=== PATIENT | female | born 1960 | race American Indian/Alaskan Native ===

== ENCOUNTER 2017-07-22 09:12 | Emergency (ER) | payer OTHER, MEDICARE ==
[2017-07-22] MEDS ORDERED: NORCO 5/325 PO ONE (12:19)
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
--- NOTE | 2017-07-22 13:30 | XRay Report ---
ROUTINE CHEST, TWO VIEWS: HISTORY: chest pain. The trachea, heart, mediastinal contour, lung lawrence and bony thorax are unremarkable. IMPRESSION: Unremarkable chest x-ray.
--- NOTE | 2017-07-22 13:31 | XRay Report ---
LEFT WRIST, 4 views: HISTORY: Left wrist pain. Routine views demonstrate the carpal bones to be well mineralized with well preserved bony mineralization and interosseous joint spaces. The carpal and adjacent articular bones have normal contours. The surrounding soft tissues are unremarkable. IMPRESSION: Normal study.
--- NOTE | 2017-07-22 13:32 | XRay Report ---
RIGHT KNEE, 3 views: History: Right knee pain. The bony architecture is intact without evidence of fracture or dislocation. Mild to moderate joint space narrowing is noted in the medial compartment and patellofemoral space. No significant soft tissue abnormality is seen. IMPRESSION: Osteoarthritis. No acute process.
[2017-07-22 14:07] VITALS: BP 117/71
== END 2017-07-22 14:10 | disposition home or self-care (01) ==
LOC: ED 09:12
DX: S63.602A Unspecified sprain of left thumb, initial encounter (principal); I10 Essential (primary) hypertension; F17.200 Nicotine dependence, unspecified, uncomplicated; E78.00 Pure hypercholesterolemia, unspecified; E03.9 Hypothyroidism, unspecified; Z79.82 Long term (current) use of aspirin; Z88.0 Allergy status to penicillin; V89.2XXA Person injured in unspecified motor-vehicle accident, traffic, initial encounter; Y93.89 Activity, other specified; Y92.89 Other specified places as the place of occurrence of the external cause; Y99.8 Other external cause status
CPT/HCPCS: 71046; 99283

== ENCOUNTER 2019-03-30 22:31 | Emergency (ER) | payer MEDICARE ==
--- NOTE | 2019-03-30 22:42 | Emergency Department Report ---
Blank Doc - Documentation Documentation: 58-year-old female that presents with right upper abdominal pain with hx of ga llstones. Stated has n/v with dark colored stool. This initial assessment/diagnostic orders/clinical plan/treatment(s) is/are subject to change based on patient's health status, clinical progression and re- assessment by fellow clinical providers in the ED. Further treatment and workup at subsequent clinical providers discretion. Patient/guardians urged not to elope from the ED as their condition may be serious if not clinically assessed and managed. Initial orders include: 1- Patient sent to MAIN for further evaluation and treatment 2- labs 3- UA
[2019-03-30 23:28] LABS: Bilirubin,Urine NEG (Negative); Blood,Urine SM (Negative); Color,Urine Yellow (Yellow); Protein,Urine <15 mg/dL mg/dL (Negative); Urobilinogen,Urine < 2.0 mg/dL (<2.0)
[2019-03-30 23:36] LABS: Basophils % (Auto) 0.4 % (0.0-1.8); Eosinophils # (Auto) 0.2 K/mm3 (0.0-0.4); Eosinophils % (Auto) 1.8 % (0.0-4.3); Hematocrit 41.2 % (30.3-42.9); Hemoglobin 13.3 gm/dl (10.1-14.3); Lymphocytes # (Auto) 3.7 K/mm3 (1.2-5.4); Lymphocytes % (Auto) 38.8 % (13.4-35.0); Mean Corpuscular HGB Conc 32 % (30-34); Mean Corpuscular Volume 90 fl (79-97); Monocytes % (Auto) 10.6 % (0.0-7.3); Platelet Count 305 K/mm3 (140-440); Red Blood Count 4.58 M/mm3 (3.65-5.03); Red Cell Distribution Width 15.4 % (13.2-15.2)
[2019-03-30 23:52] LABS: Alanine Aminotransferase 12 units/L (7-56); Albumin 3.9 g/dL (3.9-5); BUN/Creatinine Ratio 9; Blood Urea Nitrogen 7 mg/dL (7-17); Calcium 9.6 mg/dL (8.4-10.2); Hemolysis Index 1
--- NOTE | 2019-03-31 00:29 | Emergency Department Report ---
ED Abdominal Pain HPI - General Chief Complaint: Abdominal Pain Stated Complaint: GALLBLADDER Time Seen by Provider: 03/30/19 22:40 Source: patient Mode of arrival: Ambulatory Limitations: Physical Limitation - History of Present Illness Severity scale (0 -10): 4 - Related Data Home Medications Medication Instructions Recorded Confirmed Last Taken Levothyroxine [Synthroid] 100 mcg PO QAM 01/03/14 05/09/16 Unknown traMADol [Ultram 50 MG tab] 50 mg PO Q4HR PRN 01/03/14 05/09/16 Unknown DOXYCYCLINE Hyclate [Vibramycin] 100 mg PO UNK 05/09/16 05/09/16 Unknown Gabapentin 05/09/16 Unknown Loratadine 10 mg PO UNK 05/09/16 05/09/16 Unknown Losartan [Cozaar] 25 mg PO QDAY 05/09/16 05/09/16 Unknown Lovastatin [Altoprev] 20 mg PO QPM 05/09/16 05/09/16 Unknown Naproxen [Naprosyn] 500 mg PO BID 05/09/16 05/09/16 Unknown hydrOXYzine HCl [Hydroxyzine HCl] 10 mg PO UNK 05/09/16 05/09/16 Unknown tiZANidine [Zanaflex] 4 mg PO UNK 05/09/16 05/09/16 Unknown Previous Rx's Medication Instructions Recorded Last Taken Type Aspirin 325 mg PO QDAY #30 tablet 01/05/14 Unknown Rx ALBUTEROL Inhaler (OR & NICU) 2 puff IH QID PRN #1 inhalation 05/09/16 Unknown Rx [ProAir HFA Inhaler] Azithromycin [Zithromax Z-ODALIS] 1 dose PO DAILY 5 Days tab 05/09/16 Unknown Rx Benzonatate [Tessalon Perles] 100 mg PO Q8HR PRN #30 capsule 05/09/16 Unknown Rx Inhaler, Assist Devices [Space 1 each MC PRN #1 spacer 05/09/16 Unknown Rx Chamber Plus] Prednisone [predniSONE 10 mg 10 mg PO .TAPER #1 tab.ds.pk 05/09/16 Unknown Rx (6-Day Pack, 21 Tabs)] Ibuprofen [Motrin] 600 mg PO Q8H PRN #20 tablet 07/22/17 Unknown Rx Cyclobenzaprine [Flexeril 10 MG 10 mg PO TID PRN #10 tablet 03/31/19 Unknown Rx TAB] Allergies Allergy/AdvReac Type Severity Reaction Status Date / Time Penicillins AdvReac Rash Verified 07/22/17 10:22 ED Review of Systems ROS: Stated complaint: GALLBLADDER Other details as noted in HPI ED Past Medical Hx - Past Medical History Hx Hypertension: Yes Hx Congestive Heart Failure: No Hx Diabetes: No Hx Psychiatric Treatment: Yes (anxiety) Hx Asthma: No Hx COPD: No Additional medical history: chronic back pain, hypothroidism, HYPER CHOLESTEROL,gallstones - Social History Smoking Status: Never Smoker Substance Use Type: None - Medications Home Medications: Home Medications Medication Instructions Recorded Confirmed Last Taken Type Levothyroxine [Synthroid] 100 mcg PO QAM 01/03/14 05/09/16 Unknown History traMADol [Ultram 50 MG tab] 50 mg PO Q4HR PRN 01/03/14 05/09/16 Unknown History Aspirin 325 mg PO QDAY #30 tablet 01/05/14 05/09/16 Unknown Rx ALBUTEROL Inhaler (OR & NICU) 2 puff IH QID PRN #1 inhalation 05/09/16 Unknown Rx [ProAir HFA Inhaler] Azithromycin [Zithromax Z-ODALIS] 1 dose PO DAILY 5 Days tab 05/09/16 Unknown Rx Benzonatate [Tessalon Perles] 100 mg PO Q8HR PRN #30 capsule 05/09/16 Unknown Rx DOXYCYCLINE Hyclate [Vibramycin] 100 mg PO UNK 05/09/16 05/09/16 Unknown History Gabapentin 05/09/16 Unknown History Inhaler, Assist Devices [Space 1 each PRN #1 spacer 05/09/16 Unknown Rx Chamber Plus] Loratadine 10 mg PO UNK 05/09/16 05/09/16 Unknown History Losartan [Cozaar] 25 mg PO QDAY 05/09/16 05/09/16 Unknown History Lovastatin [Altoprev] 20 mg PO QPM 05/09/16 05/09/16 Unknown History Naproxen [Naprosyn] 500 mg PO BID 05/09/16 05/09/16 Unknown History Prednisone [predniSONE 10 mg 10 mg PO .TAPER #1 tab.ds.pk 05/09/16 Unknown Rx (6-Day Pack, 21 Tabs)] hydrOXYzine HCl [Hydroxyzine HCl] 10 mg PO UNK 05/09/16 05/09/16 Unknown History tiZANidine [Zanaflex] 4 mg PO UNK 05/09/16 05/09/16 Unknown History Ibuprofen [Motrin] 600 mg PO Q8H PRN #20 tablet 07/22/17 Unknown Rx Cyclobenzaprine [Flexeril 10 MG 10 mg PO TID PRN #10 tablet 03/31/19 Unknown Rx TAB] ED Physical Exam - General Limitations: Physical Limitation ED Course Vital Signs 03/30/19 03/31/19 03/31/19 22:36 00:00 00:01 Temperature 98.4 F 98.7 F Pulse Rate 103 H 80 85 Respiratory 20 16 18 Rate Blood Pressure 113/71 116/65 Blood Pressure 129/66 [Left] O2 Sat by Pulse 98 99 Oximetry 03/31/19 01:01 Temperature Pulse Rate 91 H Respiratory 15 Rate Blood Pressure 129/66 Blood Pressure [Left] O2 Sat by Pulse Oximetry ED Medical Decision Making - Lab Data Result diagrams: 03/30/19 23:07 03/30/19 23:07 Critical care attestation.: If time is entered above; I have spent that time in minutes in the direct care of this critically ill patient, excluding procedure time. ED Disposition Clinical Impression: Abdominal pain Qualifiers: Abdominal location: generalized Qualified Code(s): R10.84 - Generalized abdominal pain Disposition: - TO HOME OR SELFCARE Is pt being admited?: No Does the pt Need Aspirin: No Condition: Stable Instructions: Abdominal Pain (ED) Prescriptions: Cyclobenzaprine [Flexeril 10 MG TAB] 10 mg PO TID PRN #10 tablet PRN Reason: Muscle Spasm
--- NOTE | 2019-03-31 02:38 | Cat Scan Report ---
CT ABDOMEN AND PELVIS WITH CONTRAST INDICATION: abd pain CONTRAST: 100 cc Omnipaque 300 IV COMPARISON: None available. All CT scans at this location are performed using CT dose reduction for ALARA by means of automated e xposure control. NOTE: Resolution is decreased and artifact is introduced by the patient's size. FINDINGS: Lung bases are clear of infiltrates. A rounded soft tissue nodule with mildly irregular bor ders measuring 1 cm is seen in the posterior sulcus region of the right lower lobe and just superior to this is another small nodule measuring 3 mm. Left base shows a small calcified granuloma. No significant focal bony lesions are seen. Small probable bone island is noted in the L4 vertebral b delfino. No pneumoperitoneum is seen. Fatty infiltration of the liver is noted. Liver is enlarged and has a length of 20.7 cm. No focal lesions are obvious. Spleen appears within normal limits. Several gall stones are noted in the gallbladder without obvious wall thickening. No biliary dilatation is seen. P ancreas appears within normal limits. No urinary obstructive changes are seen. A 3 mm calculus is not ed in the lower pole the right kidney. No significant abdominal wall hernia is seen. No focal inflamm atory changes are seen. Sigmoid diverticulosis is seen without evidence of diverticulitis. No evidenc e of bowel obstruction is seen. No lymphadenopathy is noted. Both adrenal glands show prominent masses. The right adrenal gland mass measures 4.6 cm in diameter a nd the left adrenal gland mass measures 4.4 cm in diameter. Average internal density is 27 Hounsfield units on the right and 44 Hounsfield units on the left, both in the indeterminate range. An apparent pedunculated fibroid is seen arising from the posterior aspect of the uterine fundus carola uring 3.4 cm. IMPRESSION: 1. No acute abnormalities are seen 2. Nodularity in the right lower lobe which may be significant. Of particular concern is a 1 cm mildl y irregular soft tissue nodule. 3. Bilateral indeterminate large adrenal masses 4. Fatty infiltration of the liver with prominent hepatomegaly 5. Cholelithiasis without acute change seen 6. Uterine leiomyoma 7. PET/CT and abdominal MR may be useful Signer Name: Brenton Church MD Signed: 03/31/2019 2:34 AM Workstation Name: [id number]
[2019-03-31 04:17] VITALS: BP 130/80
== END 2019-03-31 03:30 | disposition home or self-care (01) ==
LOC: ED 22:31
DX: R10.84 Generalized abdominal pain (principal); J45.909 Unspecified asthma, uncomplicated; I10 Essential (primary) hypertension; F41.9 Anxiety disorder, unspecified; M54.9 Dorsalgia, unspecified; G89.29 Other chronic pain; E03.9 Hypothyroidism, unspecified; E78.00 Pure hypercholesterolemia, unspecified; Z79.899 Other long term (current) drug therapy; Z79.82 Long term (current) use of aspirin; Z88.0 Allergy status to penicillin
CPT/HCPCS: 36415; 74177; 80053; 81001; 83690; 85025; 99284; Q9967